=== PATIENT | female | born 1945 ===

== ENCOUNTER 2024-03-11 12:14 | Emergency (ER) | payer OTHER ==
[~2024-03-11] VITALS: Ht 154.9 cm; Wt 70.5 kg
[2024-03-11 12:30] VITALS: TEMP 98
[2024-03-11] MEDS: ACETAMINOPHEN 325 MG TABLET PO ONE (14:30)
[2024-03-11 15:09] VITALS: BP 142/82; PULSE 62; RESP 18; O2SAT 98
== END 2024-03-11 15:22 | disposition home or self-care (01) ==
LOC: EMS 12:14
DX: S00.03XA Contusion of scalp, initial encounter (principal); E11.9 Type 2 diabetes mellitus without complications; I10 Essential (primary) hypertension; E78.5 Hyperlipidemia, unspecified; W19.XXXA Unspecified fall, initial encounter; Y93.89 Activity, other specified; Y92.89 Other specified places as the place of occurrence of the external cause; Y99.8 Other external cause status
CPT/HCPCS: 70450; 82962; 99284